=== PATIENT | male | born 1975 | race Two or more races ===

== ENCOUNTER 2025-01-07 11:19 | Inpatient (IN) | payer MEDICAID, OTHER ==
[~2025-01-07] VITALS: Ht 165.1 cm; Wt 67.0 kg
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
[2025-01-07] MEDS: SODIUM CHLORIDE 0.9% 1,000 ML IV ONE (12:16)
[2025-01-07 13:26] LABS: Hematocrit 49.2 % (41.0-53.0); Hemoglobin 16.6 g/dL (13.5-17.5); Mean Corpuscular Hemoglobin 30.6 pg (28.0-32.0); Mean Corpuscular Volume 90.9 fL (80.0-100.0); Nucleated Red Blood Cells % 0.2 %
[2025-01-07 13:30] LABS: Potassium 4.5 mmol/L (3.5-5.1)
[2025-01-07 13:31] LABS: Anion Gap 12 (5-15); Calcium 9.1 mg/dL (8.7-10.4); Carbon Dioxide 24 mmol/L (20-31)
[2025-01-07 13:36] LABS: Blood Urea Nitrogen 14 mg/dL (9-23); Glucose 82 mg/dL (74-106)
[2025-01-07 13:39] LABS: Chloride 125 mmol/L (98-107)
[2025-01-07 13:41] LABS: Sodium 161 mmol/L (136-145)
[2025-01-07 13:45] LABS: BUN/Creatinine Ratio 13.0 (10.0-20.0)
[2025-01-07] MEDS ORDERED: ONDANSETRON HCL 4 MG/2 ML VIAL IV PRN (17:00)
[2025-01-07] MEDS ORDERED: HYDROcodone-ACET 5/325MG TAB PO PRN (17:00)
[2025-01-07] MEDS ORDERED: ACETAMINOPHEN 325 MG TAB PO PRN (17:00)
[2025-01-07] MEDS ORDERED: DOCUSATE SOD 100 MG CAP PO PRN (17:00)
[2025-01-07] MEDS: cefTRIAXone 1GM/50ML D5W 50 ML IV ONE (17:48)
[2025-01-07] MEDS: D5W 5% 1,000 ML IV SCH (17:48)
[2025-01-07 18:00] VITALS: PULSE 100; RESP 17; O2SAT 99
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
[2025-01-07] MEDS ORDERED: NITROGLYCERIN 0.4 MG SL TAB SL PRN (18:15)
[2025-01-07] MEDS ORDERED: MORPHINE SULFATE INJ 2 MG/ml SYRG IV PRN (18:15)
--- NOTE | 2025-01-07 18:49 | DVHINCON2 ---
Date of service: Jan 07, 2025 Referring Physician Tom Juan Reason for Consultation Hypernatremia History of Present Illness 49 Y/O M with history of hypothyroidism and recent hospitalization at [facility] for traumatic brain injury with intracranial bleeding on was sent for abnormal labs for elevated sodium level. apparently patient was told to limit fluid in diet. labs obtained shows Na: 161 mmol/l, and Creatinine 1.08 mg/dl. he is slightly tachycardiac in the ER. normal saline was administered and D5W started. Nephrology consulted for hypernatremia Past Medical History hypothyroidism traumatic brain injury Allergies: Coded Allergies: NO KNOWN ALLERGIES (Unverified , 01/07/25) Current Medications Current Medications Medications (Trade) Dose Ordered Sig/Vania Route PRN Reason Start Time Stop Time Status Last Admin Dextrose 1,000 ml @ 100 mls/hr Q10H IV 01/07/25 17:00 01/07/25 17:48 Ceftriaxone Sodium 50 ml @ 100 mls/hr DAILY@09 IV 01/08/25 09:00 Levothyroxine Sodium (Synthroid Tablet) 125 mcg QAM@0600 PO 01/08/25 06:00 Acetaminophen/ Hydrocodone Bitart ([place] 5/325MG Tab) 1 tab Q4HP PRN PO MODERATE PAIN (4-6 PAIN SCALE) 01/07/25 17:00 Ondansetron HCl (Zofran) 4 mg Q4HP PRN IV NAUSEA / VOMITING 01/07/25 17:00 Docusate Sodium (Colace Capsule) 100 mg BIDPRN PRN PO FOR CONSTIPATION 01/07/25 17:00 Acetaminophen (Tylenol Tablet) 650 mg Q6HP PRN PO PAIN SCALE 1-3 OR TEMP>100.4 01/07/25 17:00 Nitroglycerin (Ntrostat Sublingual) 0.4 mg Q5MINP PRN SL FOR CHEST PAIN 01/07/25 18:15 Morphine Sulfate 2 mg Q30M PRN IV FOR CHEST PAIN 01/07/25 18:15 Review of Systems as per HPI, all other systems were reviewed and are negative H&P Exam Vital Signs/I&O Vital Sign Date Time Temp Pulse Resp B/P (MAP) Pulse Ox O2 Delivery O2 Flow Rate FiO2 01/07/25 18:08 100 17 135/99 (111) 99 01/07/25 18:00 Room Air* 0 21 01/07/25 11:22 98.0 98.0 Physical Exam Gen: NAD, AAOx3 HEENT: NC, At Lungs: CTA b/l Cardiac:RRR, no murmur Abd: soft, no distention Ext: no edema Neuro: no focal deficits Labs/Diagnostic Data Labs/Diagnostic Data Laboratory Tests Test 01/07/25 13:10 Range/Units White Blood Count 13.1 H 4.4-10.8 10^3/uL Red Blood Count 5.42 4.5-5.90 10^6/uL Hemoglobin 16.6 13.5-17.5 g/dL Hematocrit 49.2 41.0-53.0 % Mean Corpuscular Volume 90.9 80.0-100.0 fL Mean Corpuscular Hemoglobin 30.6 28.0-32.0 pg Mean Corpuscular Hemoglobin Concent 33.6 32.0-36.0 g/dL Red Cell Distribution Width 14.2 11.8-14.3 % Platelet Count 213 140-450 10^3/uL Mean Platelet Volume 9.3 6.9-10.8 fL Neutrophils (%) (Auto) 61.2 37.0-80.0 % Lymphocytes (%) (Auto) 26.4 10.0-50.0 % Monocytes (%) (Auto) 11.7 0.0-12.0 % Eosinophils (%) (Auto) 0.4 0.0-7.0 % Basophils (%) (Auto) 0.3 0.0-2.0 % Neutrophils # (Auto) 8.0 1.6-8.6 10 ^3/uL Lymphocytes # (Auto) 3.4 0.4-5.4 10 ^3/uL Monocytes # (Auto) 1.5 H 0-1.3 10 ^3/uL Eosinophils # (Auto) 0.1 0-0.8 10 ^3/uL Basophils # (Auto) 0 0-0.2 10 ^3/uL Nucleated Red Blood Cells 0.2 % Sodium Level 161 *H 136-145 mmol/L Potassium Level 4.5 3.5-5.1 mmol/L Chloride Level 125 H 98-107 mmol/L Carbon Dioxide Level 24 20-31 mmol/L Anion Gap 12 5-15 Blood Urea Nitrogen 14 9-23 mg/dL Creatinine 1.08 0.700-1.30 mg/dL Glomerular Filtration Rate Calc 83 >90 mL/min BUN/Creatinine Ratio 13.0 10.0-20.0 Serum Glucose 82 74-106 mg/dL Calcium Level 9.1 8.7-10.4 mg/dL Thyroid Stimulating Hormone (TSH) < 0.01 L 0.55-4.78 uIU/mL Assessment Assessment: Hypernatremia, history consistent with Central DI hypothyroidism Plan: D5W at 100 cc/h continue Synthroid increase free water intake BMP every 12 hours obtain urine Na, and osmolality strict I&Os Plan discussed with: Patient LISANDRO SIMENTAL MD Jan 07, 2025 18:49
[2025-01-07 19:36] VITALS: PULSE 102; RESP 14; O2SAT 99
[2025-01-07 19:48] LABS: Urine Protein, UAD TRACE (Negative)
[2025-01-07 20:22] VITALS: BP 144/94; PULSE 89; PULSE 93; RESP 15; RESP 16; TEMP 98; O2SAT 100; O2SAT 98
[2025-01-07] MEDS: DONEPEZIL HYDROCHLORIDE 5 MG TAB PO SCH (21:10)
[2025-01-07 22:00] VITALS: BP 142/90; PULSE 93; RESP 18; TEMP 97.8; O2SAT 100
[2025-01-08] VITALS (8 sets, daily range): BP systolic 124–149; BP diastolic 85–98; PULSE 59–101; RESP 17–18; TEMP 97.2–98; O2SAT 99–100
[2025-01-08] MEDS: LEVOTHYROXINE SODIUM 50 MCG TAB PO SCH (05:49)
[2025-01-08 06:47] LABS: Hematocrit 42.4 % (41.0-53.0); Hemoglobin 14.5 g/dL (13.5-17.5); Mean Corpuscular Hemoglobin 30.7 pg (28.0-32.0); Mean Corpuscular Volume 89.6 fL (80.0-100.0); Nucleated Red Blood Cells % 0.1 %
[2025-01-08 06:55] LABS: Albumin 3.7 g/dL (3.2-4.8); Alkaline Phosphatase 74 U/L (46-116); Anion Gap 11 (5-15); BUN/Creatinine Ratio 9.9 (10.0-20.0); Blood Urea Nitrogen 9 mg/dL (9-23); Calcium 8.9 mg/dL (8.7-10.4); Carbon Dioxide 25 mmol/L (20-31); Total Protein 5.8 g/dL (5.7-8.2)
[2025-01-08 06:56] LABS: Bilirubin, Total 0.6 mg/dL (0.2-1.0)
[2025-01-08 07:07] LABS: Alanine Aminotransferase 131 U/L (7-40); Chloride 110 mmol/L (98-107); Glucose 106 mg/dL (74-106); Potassium 3.2 mmol/L (3.5-5.1); Sodium 146 mmol/L (136-145)
[2025-01-08] MEDS: cefTRIAXone 1GM/50ML D5W 50 ML IV SCH (10:19)
[2025-01-08 15:02] LABS: Potassium 3.8 mmol/L (3.5-5.1)
[2025-01-08 15:03] LABS: Anion Gap 9 (5-15); Calcium 9.4 mg/dL (8.7-10.4); Carbon Dioxide 27 mmol/L (20-31)
[2025-01-08 15:04] LABS: Chloride 120 mmol/L (98-107); Sodium 156 mmol/L (136-145)
[2025-01-08 15:09] LABS: BUN/Creatinine Ratio 12.2 (10.0-20.0); Blood Urea Nitrogen 10 mg/dL (9-23); Glucose 133 mg/dL (74-106)
[2025-01-08] MEDS: POTASSIUM CHL 20MEQ/100ML 100 ML IV ONE (15:16)
--- NOTE | 2025-01-08 17:51 | DVHPN2 ---
Progress Note - Dictate Date Seen: Jan 08, 2025 Medical Necessity Reason Pt with a Central, PICC or Fol: No vital signs Vital Sign Date Time Temp Pulse Resp B/P (MAP) Pulse Ox O2 Delivery O2 Flow Rate FiO2 01/08/25 13:00 98.0 73 18 149/88 (108) 100 98.0 01/08/25 08:00 Room Air* 0 21 Total Intake and Output 01/07/25 01/07/25 01/08/25 15:00 23:00 07:00 Intake Total 250 ml 1100 ml Balance 250 ml 1100 ml medications Current Medications Medications Dose Ordered Sig/Vania Route Start Time Stop Time Status Last Admin Dose Admin Ceftriaxone Sodium 50 ml @ 100 mls/hr DAILY@09 IV 01/08/25 09:00 01/08/25 10:19 100 MLS/HR Levothyroxine Sodium 125 mcg QAM@0600 PO 01/08/25 06:00 01/08/25 05:49 125 MCG Acetaminophen/ Hydrocodone Bitart 1 tab Q4HP PRN PO 01/07/25 17:00 Ondansetron HCl 4 mg Q4HP PRN IV 01/07/25 17:00 Docusate Sodium 100 mg BIDPRN PRN PO 01/07/25 17:00 Acetaminophen 650 mg Q6HP PRN PO 01/07/25 17:00 Nitroglycerin 0.4 mg Q5MINP PRN SL 01/07/25 18:15 Morphine Sulfate 2 mg Q30M PRN IV 01/07/25 18:15 Donepezil HCl 5 mg HS PO 01/07/25 22:00 01/07/25 21:10 5 MG Pantoprazole Sodium 40 mg DAILY@0600 PO 01/09/25 06:00 UNV objective Gen: NAD, AAOx3 HEENT: NC, At Lungs: CTA b/l Cardiac:RRR, no murmur Abd: soft, no distention Ext: no edema Neuro: no focal deficits laboratory and microbiology Laboratory Tests 01/08/25 14:38 01/08/25 05:58 Test 01/08/25 14:38 Range/Units Serum Glucose 133 H 74-106 mg/dL Assessment/Plan Assessment: Hypernatremia hypothyroidism Plan: history points towards Central DI from a recent traumatic brain injury, however urine osmolality is elevated (Urine Osm: 797) which is not consistent with this diagnosis. Will need to obtain strict Urine output , typically patients with DI will have polyuria (over 3 L urine daily). Will also repeat urine osmolality Continue D5W at 100 cc/h continue Synthroid increase free water intake BMP every 12 hours strict I&Os Plan discussed with: Patient LISANDRO SIMENTAL MD Jan 08, 2025 17:51
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
[2025-01-08] MEDS: D5W 5% 1,000 ML IV SCH (18:23)
[2025-01-09] VITALS (8 sets, daily range): BP systolic 138–151; BP diastolic 88–103; PULSE 63–106; RESP 16–19; TEMP 97.4–97.9; O2SAT 97–100
[2025-01-09] MEDS: LEVOTHYROXINE SODIUM 50 MCG TAB PO SCH (05:17)
[2025-01-09] MEDS: PANTOPRAZOLE 40 MG TAB PO SCH (05:17)
[2025-01-09 07:36] LABS: Hematocrit 48.3 % (41.0-53.0); Hemoglobin 15.9 g/dL (13.5-17.5); Mean Corpuscular Hemoglobin 30.1 pg (28.0-32.0); Mean Corpuscular Volume 91.6 fL (80.0-100.0); Nucleated Red Blood Cells % 0.2 %
[2025-01-09 09:55] LABS: BUN/Creatinine Ratio 7.5 (10.0-20.0)
[2025-01-09 10:05] LABS: Chloride 124 mmol/L (98-107); Potassium 3.4 mmol/L (3.5-5.1); Sodium 158 mmol/L (136-145)
[2025-01-09 10:06] LABS: Anion Gap 10 (5-15); Blood Urea Nitrogen 7 mg/dL (9-23); Calcium 9.2 mg/dL (8.7-10.4); Carbon Dioxide 24 mmol/L (20-31); Glucose 133 mg/dL (74-106)
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
[2025-01-09] MEDS ORDERED: [UNRECOGNIZED DRUG - CODE] NAS (11:02)
[2025-01-09] MEDS: POTASSIUM CHL 20 Meq TABLET PO ONE (13:28)
[2025-01-09 15:48] LABS: Potassium 3.9 mmol/L (3.5-5.1)
[2025-01-09 15:49] LABS: Anion Gap 13 (5-15); Calcium 9.5 mg/dL (8.7-10.4); Carbon Dioxide 23 mmol/L (20-31)
[2025-01-09 15:50] LABS: Chloride 124 mmol/L (98-107); Sodium 160 mmol/L (136-145)
[2025-01-09 15:54] LABS: BUN/Creatinine Ratio 12.2 (10.0-20.0); Blood Urea Nitrogen 11 mg/dL (9-23); Glucose 100 mg/dL (74-106)
--- NOTE | 2025-01-09 16:13 | DVHPN2 ---
Progress Note - Dictate Date Seen: Jan 09, 2025 Medical Necessity Reason Pt with a Central, PICC or Fol: No Subjective no new symptoms vital signs Vital Sign Date Time Temp Pulse Resp B/P (MAP) Pulse Ox O2 Delivery O2 Flow Rate FiO2 01/09/25 13:00 97.4 98 18 138/98 (111) 98 97.4 01/09/25 08:00 Room Air* 0 21 Total Intake and Output 01/08/25 01/08/25 01/09/25 15:00 23:00 07:00 Intake Total 4100 ml 1900 ml Output Total 750 ml 2900 ml Balance 3350 ml -1000 ml medications Current Medications Medications Dose Ordered Sig/Vania Route Start Time Stop Time Status Last Admin Dose Admin Ceftriaxone Sodium 50 ml @ 100 mls/hr DAILY@09 IV 01/08/25 09:00 01/09/25 09:25 100 MLS/HR Acetaminophen/ Hydrocodone Bitart 1 tab Q4HP PRN PO 01/07/25 17:00 Ondansetron HCl 4 mg Q4HP PRN IV 01/07/25 17:00 Docusate Sodium 100 mg BIDPRN PRN PO 01/07/25 17:00 Acetaminophen 650 mg Q6HP PRN PO 01/07/25 17:00 Nitroglycerin 0.4 mg Q5MINP PRN SL 01/07/25 18:15 Morphine Sulfate 2 mg Q30M PRN IV 01/07/25 18:15 Donepezil HCl 5 mg HS PO 01/07/25 22:00 01/08/25 21:40 5 MG Pantoprazole Sodium 40 mg DAILY@0600 PO 01/09/25 06:00 01/09/25 05:17 40 MG Dextrose 1,000 ml @ 40 mls/hr Q24H IV 01/08/25 18:00 01/08/25 18:23 40 MLS/HR Levothyroxine Sodium 100 mcg QAM@0600 PO 01/09/25 06:00 01/09/25 05:17 100 MCG objective Gen: NAD, AAOx3 HEENT: NC, At Lungs: CTA b/l Cardiac:RRR, no murmur Abd: soft, no distention Ext: no edema Neuro: no focal deficits laboratory and microbiology Laboratory Tests 01/09/25 15:14 01/09/25 06:58 Test 01/09/25 15:14 Range/Units Serum Glucose 100 74-106 mg/dL Assessment/Plan Assessment: Hypernatremia, and 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 (Urine osm is 78 , very low consistent with free water loss). He has recent history of traumatic brain injury and was discharged on Desmopressin nasal spray. hypothyroidism Plan: Start Desmopressin nasal spray 10 mcg (1 spray) daily. will gradually up-titrate the dose. Allow patient to drink to thirst as long as he is using the spray. if for whatever reason he does not have access to the spray then he will need to increase free water intake. (Fluid restriction or drinking to thirst is only acceptable if he is using the Desmopressin spray) Decrease D5W to 20 cc/h once Desmopressin spray is given. continue Synthroid BMP every 12 hours strict I&Os Plan discussed with: Patient, Other LISANDRO SIMENTAL MD Jan 09, 2025 16:13
[2025-01-09] MEDS: DESMOPRESSIN ACET 0.01% 5ML NASAL SPRY SCH (21:07)
[2025-01-10] VITALS (8 sets, daily range): BP systolic 108–145; BP diastolic 66–90; PULSE 56–88; RESP 16–18; TEMP 97.6–98.7; O2SAT 97–100
--- NOTE | 2025-01-10 06:30 | DVHPN2 ---
Progress Note - Dictate Date Seen: Jan 10, 2025 Medical Necessity Reason Pt with a Central, PICC or Fol: No Subjective no new symptoms vital signs Vital Sign Date Time Temp Pulse Resp B/P (MAP) Pulse Ox O2 Delivery O2 Flow Rate FiO2 01/10/25 05:00 97.8 88 16 145/76 (99) 97 97.8 01/09/25 20:00 Room Air* 0 21 Total Intake and Output 01/09/25 01/09/25 01/10/25 15:00 23:00 07:00 Intake Total 280 ml 1600 ml 970 ml Output Total 800 ml 985 ml Balance 280 ml 800 ml -15 ml medications Current Medications Medications Dose Ordered Sig/Vania Route Start Time Stop Time Status Last Admin Dose Admin Ceftriaxone Sodium 50 ml @ 100 mls/hr DAILY@09 IV 01/08/25 09:00 01/09/25 09:25 100 MLS/HR Acetaminophen/ Hydrocodone Bitart 1 tab Q4HP PRN PO 01/07/25 17:00 Ondansetron HCl 4 mg Q4HP PRN IV 01/07/25 17:00 Docusate Sodium 100 mg BIDPRN PRN PO 01/07/25 17:00 Acetaminophen 650 mg Q6HP PRN PO 01/07/25 17:00 Nitroglycerin 0.4 mg Q5MINP PRN SL 01/07/25 18:15 Morphine Sulfate 2 mg Q30M PRN IV 01/07/25 18:15 Donepezil HCl 5 mg HS PO 01/07/25 22:00 01/09/25 21:14 5 MG Pantoprazole Sodium 40 mg DAILY@0600 PO 01/09/25 06:00 01/10/25 05:41 40 MG Levothyroxine Sodium 100 mcg QAM@0600 PO 01/09/25 06:00 01/10/25 05:41 100 MCG Dextrose 1,000 ml @ 60 mls/hr [id number] IV 01/09/25 17:45 Desmopressin Acetate 1 spr HS NA 01/09/25 17:45 01/09/25 21:07 1 SPR objective Gen: NAD, AAOx3 HEENT: NC, At Lungs: CTA b/l Cardiac:RRR, no murmur Abd: soft, no distention Ext: no edema Neuro: no focal deficits laboratory and microbiology Laboratory Tests 01/09/25 15:14 01/09/25 06:58 Test 01/09/25 15:14 Range/Units Serum Glucose 100 74-106 mg/dL Assessment/Plan Assessment: Hypernatremia, and 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 (Urine osm is 78 , very low consistent with free water loss). He has recent history of traumatic brain injury and was discharged on Desmopressin nasal spray. hypothyroidism Plan: labs from this morning are still pending Continue D5W at current rate, will adjust once labs are back. Started Desmopressin nasal spray 10 mcg (1 spray) daily yesterday. will gradually up-titrate the dose. Allow patient to drink to thirst as long as he is using the spray. if for whatever reason he does not have access to the spray then he will need to increase free water intake. (Fluid restriction or drinking to thirst is only acceptable if he is using the Desmopressin spray) continue Synthroid BMP every 12 hours strict I&Os Plan discussed with: Patient LISANDRO SIMENTAL MD Jan 10, 2025 06:30
[2025-01-10 07:28] LABS: Anion Gap 11 (5-15); Carbon Dioxide 23 mmol/L (20-31)
[2025-01-10 07:33] LABS: BUN/Creatinine Ratio 9.0 (10.0-20.0); Glucose 87 mg/dL (74-106)
[2025-01-10 07:39] LABS: Blood Urea Nitrogen 8 mg/dL (9-23); Calcium 8.6 mg/dL (8.7-10.4); Chloride 112 mmol/L (98-107); Potassium 3.2 mmol/L (3.5-5.1); Sodium 146 mmol/L (136-145)
[2025-01-10 07:48] LABS: Hematocrit 42.6 % (41.0-53.0); Hemoglobin 13.9 g/dL (13.5-17.5); Mean Corpuscular Hemoglobin 29.5 pg (28.0-32.0); Mean Corpuscular Volume 90.3 fL (80.0-100.0); Nucleated Red Blood Cells % 0.2 %
[2025-01-10] MEDS: D5W 5% 1,000 ML IV SCH (08:37)
[2025-01-10] MEDS ORDERED: DESMOPRESSIN ACET 0.01% 5ML NASAL SPRY SCH (10:00)
[2025-01-10] MEDS: POTASSIUM CHL 20MEQ/100ML 100 ML IV ONE (11:29)
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
[2025-01-10 15:55] LABS: Chloride 106 mmol/L (98-107); Potassium 3.9 mmol/L (3.5-5.1); Sodium 140 mmol/L (136-145)
[2025-01-10 15:56] LABS: Anion Gap 10 (5-15); Carbon Dioxide 24 mmol/L (20-31)
[2025-01-10 16:01] LABS: BUN/Creatinine Ratio 17.3 (10.0-20.0); Blood Urea Nitrogen 14 mg/dL (9-23); Glucose 98 mg/dL (74-106)
[2025-01-10 16:02] LABS: Calcium 8.1 mg/dL (8.7-10.4)
[2025-01-11] VITALS (7 sets, daily range): BP systolic 113–128; BP diastolic 80–87; PULSE 56–85; RESP 16–18; TEMP 97.8–98.1; O2SAT 90–100
[2025-01-11 06:44] LABS: Potassium 3.8 mmol/L (3.5-5.1)
[2025-01-11 06:45] LABS: Anion Gap 10 (5-15); Carbon Dioxide 26 mmol/L (20-31)
[2025-01-11 06:46] LABS: Calcium 9.2 mg/dL (8.7-10.4); Chloride 115 mmol/L (98-107); Sodium 151 mmol/L (136-145)
[2025-01-11 06:50] LABS: Glucose 82 mg/dL (74-106)
[2025-01-11 06:51] LABS: BUN/Creatinine Ratio 9.9 (10.0-20.0)
[2025-01-11 06:53] LABS: Blood Urea Nitrogen 8 mg/dL (9-23)
[2025-01-11] MEDS: DESMOPRESSIN ACET 0.01% 5ML NASAL SPRY SCH (10:24)
--- NOTE | 2025-01-11 13:35 | DVH ---
LEFT Upper Extremity Venous Duplex Clinical History: edema Comparison: None Findings: Duplex Doppler evaluation of the venous system of the LEFT lower neck and upper extremity including c olor Doppler and spectral/pulsed waveform analysis was performed. The internal jugular vein demonstrates appropriate compressibility and waveform variability. The subclavian vein is patent on color Doppler evaluation without intraluminal thrombus and demonstra pavan waveform variability. The visualized portion of the brachiocephalic vein is patent on color Doppler evaluation without intr aluminal thrombus and demonstrates waveform variability. The axillary vein demonstrates appropriate compressibility and waveform variability. The brachial veins demonstrate appropriate compressibility and patency on Doppler evaluation. Occlusive thrombus in the left basilic vein The cephalic vein demonstrates appropriate compressibility and patency on Doppler evaluation. Impression: Occlusive thrombus in the left basilic vein If clinical concern/symptoms persist or worsen, short-interval follow-up study is suggested.
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
[2025-01-11 15:25] LABS: Potassium 3.7 mmol/L (3.5-5.1); Sodium 141 mmol/L (136-145)
[2025-01-11 15:26] LABS: Anion Gap 9 (5-15); Carbon Dioxide 23 mmol/L (20-31)
[2025-01-11 15:31] LABS: BUN/Creatinine Ratio 9.7 (10.0-20.0); Blood Urea Nitrogen 7 mg/dL (9-23); Calcium 8.4 mg/dL (8.7-10.4); Chloride 109 mmol/L (98-107); Glucose 92 mg/dL (74-106)
[2025-01-11] MEDS: IBUPROFEN 600 MG TAB PO ONE (16:17)
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
[2025-01-12 01:00] VITALS: BP 106/74; PULSE 91; RESP 17; TEMP 98; O2SAT 99
[2025-01-12 05:00] VITALS: BP 114/78; PULSE 73; RESP 15; TEMP 98; O2SAT 99
[2025-01-12 09:00] LABS: Hematocrit 41.9 % (41.0-53.0); Hemoglobin 14.2 g/dL (13.5-17.5); Mean Corpuscular Hemoglobin 30.0 pg (28.0-32.0); Mean Corpuscular Volume 88.9 fL (80.0-100.0); Nucleated Red Blood Cells % 0.0 %
[2025-01-12 09:09] LABS: Chloride 103 mmol/L (98-107); Sodium 137 mmol/L (136-145)
[2025-01-12 09:10] LABS: Anion Gap 9 (5-15); Carbon Dioxide 25 mmol/L (20-31)
[2025-01-12 09:11] VITALS: BP 105/77; PULSE 63; RESP 20; TEMP 97.9; O2SAT 97
[2025-01-12 09:11] LABS: Calcium 8.2 mg/dL (8.7-10.4); Potassium 3.4 mmol/L (3.5-5.1)
[2025-01-12 09:16] LABS: BUN/Creatinine Ratio 15.2 (10.0-20.0); Blood Urea Nitrogen 12 mg/dL (9-23); Glucose 100 mg/dL (74-106)
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
[2025-01-12] MEDS: POTASSIUM EFFERVESENT TAB 25 MEQ PO ONE (09:58)
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
[2025-01-12] MEDS ORDERED: LEVO50TA7 PO (12:02)
[2025-01-12] MEDS ORDERED: DESNSL (12:02)
[2025-01-12 12:28] VITALS: BP 125/70; PULSE 72; RESP 20; TEMP 98.1; O2SAT 98
[2025-01-14 12:12] LABS: Follicle Stimulating Hormone 3.71 IU/L (1.4-18.1); Free T4 (Free Thyroxine) 2.56 ng/dL (0.89-1.76)
== END 2025-01-12 14:12 | disposition home or self-care (01) | DRG 426 ==
LOC: ER 11:19 → OVERFLOW 18:03 → TELE-WESTW 21:46 → WEST WING 01-09 23:07
PROVIDERS: ADMIT Student in an Organized Health Care Education/Training Program; ATTEND Emergency Medicine
DX: E23.2 Diabetes insipidus (principal); R65.10 Systemic inflammatory response syndrome (SIRS) of non-infectious origin without acute organ dysfunction; E03.9 Hypothyroidism, unspecified; I10 Essential (primary) hypertension; E05.80 Other thyrotoxicosis without thyrotoxic crisis or storm; E86.0 Dehydration; T50.995A Adverse effect of other drugs, medicaments and biological substances, initial encounter; Z79.890 Hormone replacement therapy; Y92.89 Other specified places as the place of occurrence of the external cause; Z87.820 Personal history of traumatic brain injury
CPT/HCPCS: 36415; 80048; 80053; 81001; 82024; 82533; 83001; 83002; 83735; 83930; 83935; 84146; 84300; 84439; 84443; 84480; 85025; 87081; 93971; 96365; 99291; 99292; G0378; J3480